=== PATIENT | male | born 1975 | race Caucasian/White ===

== ENCOUNTER 2019-08-02 21:46 | Inpatient (IN) | payer MEDICARE, MEDICAID ==
[~2019-08-02] VITALS: Ht 175.3 cm; Wt 91.9 kg
[2019-08-02] MEDS ORDERED: ALBUTEROL SULFATE 2.5 MG/3 ML NPPB ONE (22:00)
[2019-08-02] MEDS ORDERED: ALBUTEROL SULFATE 2.5 MG/3 ML ONE (22:05)
[2019-08-02] MEDS ORDERED: PLEASE ENTER ALLERGIES MC SCH (22:30)
[2019-08-02 22:37] LABS: MEAN CORPUSCULAR HEMOGLOBIN 30.4 pg (27.5-34.5); MEAN CORPUSCULAR HGB CONC 32.6 g/dL (33.2-36.2); MEAN CORPUSCULAR VOLUME 93.1 fL (81-97); MEAN PLATELET VOLUME 7.5 fL (7.4-10.4); PLATELET COUNT 275 x10^3/uL (130-400); RED BLOOD COUNT 4.99 x10^6/uL (4.38-5.82); RED CELL DISTRIBUTION WIDTH 15.3 % (9.4-14.8)
[2019-08-02 22:51] LABS: ALANINE AMINOTRANSFERASE 78 U/L (12-78); ALBUMIN 3.3 g/dL (3.4-5.0); ANION GAP 5 mmol/L (5-15); CALCIUM 8.4 mg/dL (8.5-10.1); CHLORIDE 102 mmol/L (98-107)
[2019-08-02 22:55] LABS: ALKALINE PHOSPHATASE 87 U/L (45-117); BILIRUBIN,TOTAL 0.6 mg/dL (0.2-1.0); TOTAL PROTEIN 6.1 g/dL (6.4-8.2)
[2019-08-02 22:58] LABS: TROPONIN I 0.373 ng/mL (0.000-0.045)
[2019-08-02 23:11] LABS: BASOPHILS # (AUTO) 0.05 x10^3/uL (0-0.1); BASOPHILS % (AUTO) 0 % (0-1); EOSINOPHILS # (AUTO) 0.17 x10^3/uL (0-0.4); EOSINOPHILS % (AUTO) 1 % (1-7); LYMPHOCYTES # (AUTO) 1.38 x10^3/uL (1-3.4); LYMPHOCYTES % (AUTO) 11 % (22-44); MD SCAN; MONOCYTES # (AUTO) 1.16 x10^3/uL (0.2-0.8); MONOCYTES % (AUTO) 10 % (2-9); NEUTROPHILS # (AUTO) 9.31 x10^3/uL (1.8-6.8); NEUTROPHILS % (AUTO) 77 % (42-75)
[2019-08-03] VITALS (7 sets, daily range): BP systolic 103–133; BP diastolic 69–94
[2019-08-03] MEDS ORDERED: ONDANSETRON 2MG/ML, 2ML IVPush PRN
[2019-08-03] MEDS ORDERED: ASPIRIN 325 MG TABLET PO ONE
[2019-08-03] MEDS ORDERED: ACET600C6 PO (00:04)
[2019-08-03] MEDS ORDERED: FURO40TA6 PO (00:04)
[2019-08-03] MEDS ORDERED: SPIR25TA5 PO (00:04)
[2019-08-03] MEDS ORDERED: SACU1TAB PO (00:04)
[2019-08-03] MEDS ORDERED: ATOR-2 PO (00:04)
[2019-08-03] MEDS ORDERED: DIGO125T PO (00:04)
[2019-08-03] MEDS ORDERED: MULT1TAB9 PO (00:04)
[2019-08-03] MEDS ORDERED: ASPIRIN 325 MG TABLET ONE (00:14)
[2019-08-03] MEDS ORDERED: NITROGLYCERIN OINT 2%, 1GM TP ONE ×2 (00:15→00:30)
[2019-08-03] MEDS ORDERED: ENOXAPARIN 80 MG/0.8 ML SQ ONE (01:00)
[2019-08-03] MEDS: ACETAMINOPHEN 325 MG TABLET PO PRN (01:22)
[2019-08-03] MEDS: ALBUTEROL/IPRATROPIUM 2.5MG/0.5MG, 3 ML HHN PRN ×2 (01:41→18:40)
[2019-08-03] MEDS ORDERED: NITROGLYCERIN 0.4 MG/SPRAY SL PRN (04:00)
[2019-08-03] MEDS: NITROGLYCERIN 0.4 MG BOTTLE (25 TABS) SL PRN ×3 (04:02→04:17)
[2019-08-03] MEDS: MORPHINE SULFATE 4 MG/ML, 1ML IVPush PRN (05:07)
[2019-08-03 05:34] LABS: MEAN CORPUSCULAR HEMOGLOBIN 30.2 pg (27.5-34.5); MEAN CORPUSCULAR HGB CONC 32.2 g/dL (33.2-36.2); MEAN CORPUSCULAR VOLUME 93.6 fL (81-97); MEAN PLATELET VOLUME 7.7 fL (7.4-10.4); PLATELET COUNT 260 x10^3/uL (130-400); RED BLOOD COUNT 4.87 x10^6/uL (4.38-5.82); RED CELL DISTRIBUTION WIDTH 15.1 % (9.4-14.8)
[2019-08-03 05:41] LABS: ANION GAP 8 mmol/L (5-15); CALCIUM 8.1 mg/dL (8.5-10.1); CHLORIDE 101 mmol/L (98-107)
[2019-08-03 05:45] LABS: TROPONIN I 0.356 ng/mL (0.000-0.045)
[2019-08-03 05:51] LABS: BASOPHILS # (AUTO) 0.01 x10^3/uL (0-0.1); BASOPHILS % (AUTO) 0 % (0-1); EOSINOPHILS # (AUTO) 0.02 x10^3/uL (0-0.4); EOSINOPHILS % (AUTO) 0 % (1-7); LYMPHOCYTES # (AUTO) 0.48 x10^3/uL (1-3.4); LYMPHOCYTES % (AUTO) 4 % (22-44); MD SCAN; MONOCYTES # (AUTO) 0.19 x10^3/uL (0.2-0.8); MONOCYTES % (AUTO) 2 % (2-9); NEUTROPHILS # (AUTO) 11.61 x10^3/uL (1.8-6.8); NEUTROPHILS % (AUTO) 94 % (42-75)
[2019-08-03] MEDS: ENOXAPARIN 40 MG/0.4 ML SQ SCH (08:00)
[2019-08-03] MEDS ORDERED: FUROSEMIDE 80 MG TABLET PO SCH (09:00)
[2019-08-03] MEDS: APIXABAN 5 MG TABLET PO SCH ×2 (09:53→20:16)
[2019-08-03] MEDS: SPIRONOLACTONE 25 MG TABLET PO SCH (09:53)
[2019-08-03] MEDS: DIGOXIN 0.125 MG TABLET PO SCH (09:53)
[2019-08-03] MEDS: SACUBITRIL/VALSARTAN 24MG-26MG TAB PO SCH ×2 (09:53→20:16)
[2019-08-03] MEDS: FUROSEMIDE 40 MG/4 ML IV SCH (17:18)
[2019-08-03] MEDS: CARVEDILOL 3.125 MG TABLET PO SCH (17:18)
[2019-08-03] MEDS ORDERED: LORazepam 1MG TABLET PO PRN (18:00)
[2019-08-03] MEDS ORDERED: ALBUTEROL/IPRATROPIUM 2.5MG/0.5MG, 3 ML NPPB PRN (19:00)
[2019-08-03] MEDS: ALBUTEROL/IPRATROPIUM 2.5MG/0.5MG, 3 ML NPPB SCH ×2 (19:00→23:06)
[2019-08-03] MEDS: ATORVASTATIN 40 MG TABLET PO SCH (20:16)
[2019-08-04 01:51] VITALS: BP 118/78
[2019-08-04] MEDS: ALBUTEROL/IPRATROPIUM 2.5MG/0.5MG, 3 ML HHN PRN (01:57)
[2019-08-04] MEDS: MORPHINE SULFATE 4 MG/ML, 1ML IVPush PRN ×2 (03:39→19:46)
[2019-08-04] MEDS: ALBUTEROL/IPRATROPIUM 2.5MG/0.5MG, 3 ML NPPB SCH ×6 (04:01→23:00)
[2019-08-04] MEDS: ASPIRIN 81 MG TABLET EC PO SCH (05:34)
[2019-08-04] MEDS: CARVEDILOL 3.125 MG TABLET PO SCH (05:34)
[2019-08-04] MEDS: ACETAMINOPHEN 325 MG TABLET PO PRN ×2 (05:37→18:10)
[2019-08-04 05:43] LABS: MEAN CORPUSCULAR HEMOGLOBIN 30.9 pg (27.5-34.5); MEAN CORPUSCULAR HGB CONC 32.9 g/dL (33.2-36.2); MEAN PLATELET VOLUME 7.7 fL (7.4-10.4); PLATELET COUNT 268 x10^3/uL (130-400); RED BLOOD COUNT 4.82 x10^6/uL (4.38-5.82); RED CELL DISTRIBUTION WIDTH 15.3 % (9.4-14.8)
[2019-08-04 06:05] LABS: ANION GAP 7 mmol/L (5-15); CALCIUM 8.2 mg/dL (8.5-10.1); CHLORIDE 99 mmol/L (98-107)
[2019-08-04 06:18] LABS: BASOPHILS # (AUTO) 0.02 x10^3/uL (0-0.1); BASOPHILS % (AUTO) 0 % (0-1); EOSINOPHILS # (AUTO) 0.21 x10^3/uL (0-0.4); EOSINOPHILS % (AUTO) 2 % (1-7); LYMPHOCYTES # (AUTO) 1.07 x10^3/uL (1-3.4); LYMPHOCYTES % (AUTO) 9 % (22-44); MD SCAN; MONOCYTES # (AUTO) 1.13 x10^3/uL (0.2-0.8); MONOCYTES % (AUTO) 9 % (2-9); NEUTROPHILS % (AUTO) 80 % (42-75)
[2019-08-04 07:37] VITALS: BP 121/79
[2019-08-04] MEDS ORDERED: AZITHROMYCIN 500 MG TABLET PO ONE (08:00)
[2019-08-04] MEDS ORDERED: POTASSIUM CHLORIDE 20 MEQ TAB.ER.PRT PO ONE (08:00)
[2019-08-04] MEDS: methylPREDNISolone SOD SUCC 125 MG/2 ML IVPush SCH ×2 (08:27→19:46)
[2019-08-04] MEDS: ENOXAPARIN 40 MG/0.4 ML SQ SCH (08:27)
[2019-08-04] MEDS: SPIRONOLACTONE 25 MG TABLET PO SCH (08:28)
[2019-08-04] MEDS: SACUBITRIL/VALSARTAN 24MG-26MG TAB PO SCH ×2 (08:28→19:45)
[2019-08-04] MEDS: FUROSEMIDE 40 MG/4 ML IV SCH ×2 (08:28→17:07)
[2019-08-04] MEDS: DIGOXIN 0.125 MG TABLET PO SCH (08:28)
[2019-08-04] MEDS: APIXABAN 5 MG TABLET PO SCH ×2 (08:28→19:45)
[2019-08-04 14:34] VITALS: BP 118/83
[2019-08-04] MEDS: CARVEDILOL 6.25 MG TABLET PO SCH (17:07)
[2019-08-04 19:33] VITALS: BP 104/67
[2019-08-04] MEDS: ATORVASTATIN 40 MG TABLET PO SCH (19:46)
[2019-08-05 01:43] VITALS: BP 101/71
[2019-08-05] MEDS: ALBUTEROL/IPRATROPIUM 2.5MG/0.5MG, 3 ML NPPB SCH ×5 (03:28→18:28)
[2019-08-05] MEDS: CARVEDILOL 6.25 MG TABLET PO SCH ×2 (05:50→16:58)
[2019-08-05] MEDS: ASPIRIN 81 MG TABLET EC PO SCH (05:50)
[2019-08-05 06:28] LABS: MEAN CORPUSCULAR HEMOGLOBIN 31.1 pg (27.5-34.5); MEAN CORPUSCULAR HGB CONC 33.2 g/dL (33.2-36.2); MEAN CORPUSCULAR VOLUME 93.8 fL (81-97); MEAN PLATELET VOLUME 7.7 fL (7.4-10.4); PLATELET COUNT 283 x10^3/uL (130-400); RED BLOOD COUNT 5.18 x10^6/uL (4.38-5.82); RED CELL DISTRIBUTION WIDTH 15.3 % (9.4-14.8)
[2019-08-05 06:32] LABS: ANION GAP 4 mmol/L (5-15); CALCIUM 8.3 mg/dL (8.5-10.1); CHLORIDE 100 mmol/L (98-107); CREATININE 0.95 mg/dL (0.7-1.3)
[2019-08-05 06:44] LABS: BASOPHILS # (AUTO) 0.08 x10^3/uL (0-0.1); BASOPHILS % (AUTO) 1 % (0-1); EOSINOPHILS % (AUTO) 0 % (1-7); LYMPHOCYTES # (AUTO) 0.41 x10^3/uL (1-3.4); LYMPHOCYTES % (AUTO) 3 % (22-44); MD SCAN; MONOCYTES # (AUTO) 0.45 x10^3/uL (0.2-0.8); MONOCYTES % (AUTO) 3 % (2-9); NEUTROPHILS % (AUTO) 94 % (42-75)
[2019-08-05 08:02] VITALS: BP 123/88
[2019-08-05] MEDS ORDERED: AZITHROMYCIN 250 MG TABLET PO SCH (09:00)
[2019-08-05] MEDS: FUROSEMIDE 40 MG/4 ML IV SCH ×2 (10:29→16:58)
[2019-08-05] MEDS: DIGOXIN 0.125 MG TABLET PO SCH (10:29)
[2019-08-05] MEDS: SACUBITRIL/VALSARTAN 24MG-26MG TAB PO SCH (10:31)
[2019-08-05] MEDS: APIXABAN 5 MG TABLET PO SCH (10:31)
[2019-08-05] MEDS: SPIRONOLACTONE 25 MG TABLET PO SCH (10:32)
[2019-08-05 14:03] VITALS: BP 101/81
[2019-08-05] MEDS ORDERED: APIX5TAB PO (14:34)
[2019-08-05] MEDS ORDERED: ALBU8.5H8 IH (14:34)
[2019-08-05] MEDS ORDERED: AZIT250T89 PO (14:34)
[2019-08-05] MEDS ORDERED: ASPI81TA45 PO (14:34)
[2019-08-05] MEDS ORDERED: PRED20TA PO (14:34)
[2019-08-05] MEDS ORDERED: CARV6.2512 PO (14:34)
[2019-08-05] MEDS ORDERED: FLU VACC QS2019-20 36MOS UP/PF 0.5 ML IM-VACC ONE (15:00)
[2019-08-05 16:55] VITALS: BP 109/72
[2019-08-05] MEDS: ACETAMINOPHEN 325 MG TABLET PO PRN (16:58)
== END 2019-08-05 18:47 | disposition home or self-care (01) | DRG 280 ==
LOC: ED 23:24 → EDIP 23:36 → 5SO 08-03 00:57
PROVIDERS: ADMIT Internal Medicine; ATTEND Internal Medicine
DX: I11.0 Hypertensive heart disease with heart failure (principal); I21.A1 Myocardial infarction type 2; J96.00 Acute respiratory failure, unspecified whether with hypoxia or hypercapnia; J44.1 Chronic obstructive pulmonary disease with (acute) exacerbation; D68.69 Other thrombophilia; J44.0 Chronic obstructive pulmonary disease with (acute) lower respiratory infection; I50.43 Acute on chronic combined systolic (congestive) and diastolic (congestive) heart failure; I42.0 Dilated cardiomyopathy; E78.5 Hyperlipidemia, unspecified; F17.210 Nicotine dependence, cigarettes, uncomplicated; F41.9 Anxiety disorder, unspecified; I48.0 Paroxysmal atrial fibrillation; Z79.899 Other long term (current) drug therapy; Z95.810 Presence of automatic (implantable) cardiac defibrillator; Z88.8 Allergy status to other drugs, medicaments and biological substances
CPT/HCPCS: 36415; 71045; 80048; 80053; 80162; 83735; 83880; 84145; 84484; 85025; 85379; 90686; 93005; 93306; 94640; 99285; G0378; J1650; J1940; J7613; J7620; J2270; J2930; J7512